=== PATIENT | female | born 1990 | race Caucasian/White ===

== ENCOUNTER 2017-03-19 01:32 | Emergency (ER) | payer MEDICAID ==
[~2017-03-19] VITALS: Ht 165.1 cm; Wt 53.5 kg
[2017-03-19] MEDS ORDERED: IV NORMAL SALINE 1000 ML BAG IV ONE ×2 (02:00→02:15)
--- NOTE | 2017-03-19 02:00 | NUR ---
Pt ambulated to room with steady gait and changed into gown. Pt c/o severe sharp mid epigastric pain non radiating with nausea for 1 day. Pt seen by Dr. Elliott, awaiting further orders.
[2017-03-19] MEDS ORDERED: MORPHINE SULFATE 2 MG/1 ML DISP.SYRIN IV ONE (02:15)
[2017-03-19] MEDS ORDERED: ONDANSETRON 4 MG/2 ML VIAL IV ONE (02:15)
[2017-03-19 02:16] LABS: *BILIRUBIN,URIN NEGATIVE (NEGATIVE); *BLOOD, URINE NEGATIVE (NEGATIVE); *CLARITY,URINE CLEAR (CLEAR); *COLOR,URINE STRAW (YELLOW); *KETONES,URINE NEGATIVE (NEGATIVE); *PROTEIN,URINE NEGATIVE (NEGATIVE); *UROBILINOGEN,URINE 0.2 E.U./dl (NORMAL); LEUKOCYTE ESTERASE ,URINE NEGATIVE (NEGATIVE); NITRITE, URINE NEGATIVE (NEGATIVE); UGLUCOSE NEGATIVE (NEGATIVE)
[2017-03-19 02:17] LABS: *URINE HCG, QUAL NEGATIVE (NEGATIVE)
[2017-03-19 02:28] LABS: BASOPHILS % (AUTO) 0.1 % (0.0-2.0); EOSINOPHILS # (AUTO) 0.1 K/uL (0.0-0.7); HEMATOCRIT 38.4 % (37-47); HEMOGLOBIN 13.2 G/DL (12.0-16.0); LYMPHOCYTES # (AUTO) 1.4 K/UL (0.8-4.8); LYMPHOCYTES % (AUTO) 14.3 % (20.5-51.5); MEAN CORPUSCULAR HEMOGLOBIN 31.7 UUG (27.0-31.0); MEAN CORPUSCULAR HGB CONC 35 g/dL (32.0-37.0); MEAN CORPUSCULAR VOLUME 91.9 FL (81.0-99.0); MONOCYTES # (AUTO) 0.5 K/UL (0.1-1.30); MONOCYTES % (AUTO) 4.8 % (0.0-11.0); NEUTROPHILS # (AUTO) 7.6 K/UL (1.8-8.9); NEUTROPHILS % (AUTO) 79.8 % (38.5-71.5); PLATELET COUNT (AUTO) 187 K/UL (150-450); RED BLOOD CELL COUNT(AUTO) 4.18 MIL/UL (4.2-5.4); WHITE BLOOD COUNT (AUTO) 9.6 K/UL (4.0-11.2)
--- NOTE | 2017-03-19 02:35 | NUR ---
IV established, labs drawn and sent. Pt medicated for discomfort and nausea, will monitor for effects of medication. Pt resting in position of comfort for self. Fluid bolus infusing freely to gravity. Awaiting U/S
[2017-03-19 02:36] LABS: BACTERIA,URINE NONE SEEN /HPF (NONE SEEN); RBC,URINE NONE SEEN /HPF (0-3); SQUAMOUS EPITHELIAL CELL,UR FEW /HPF (NONE SEEN); WBC,URINE NONE SEEN /HPF (0-3)
[2017-03-19 02:39] LABS: CREATININE 0.8 mg/dL (0.6-1.3); POTASSIUM 3.6 mmol/L (3.5-5.1)
[2017-03-19] MEDS ORDERED: ONDANSETRON 4 MG/2 ML VIAL ONE (02:39)
[2017-03-19] MEDS ORDERED: MORPHINE SULFATE 4 MG/1 ML DISP.SYRIN ONE (02:39)
[2017-03-19 02:44] LABS: BILIRUBIN,DIRECT 0.1 mg/dL (0.0-0.2); BILIRUBIN,TOTAL 0.2 mg/dL (0.2-1.0); TOTAL PROTEIN, SERUM 6.8 g/dL (6.4-8.2)
[2017-03-19] MEDS ORDERED: PANTOPRAZOLE SODIUM 40 MG VIAL IV ONE (02:45)
[2017-03-19] MEDS ORDERED: PANTOPRAZOLE SODIUM 40 MG VIAL ONE (03:06)
--- NOTE | 2017-03-19 03:08 | NUR ---
Pt sts pain improved with medications. Pt ambulated to br with steady gait. Pt resting in position of comfort for self. No complaints at this time. First fluid bolus completed, second fluid bolus started and is infusing freely to gravity.
--- NOTE | 2017-03-19 03:55 | NUR ---
Second fluid bolus completed. Pt ambulated to and from br with steady gait. Was resting in position of comfort for self. U/S arrived at bedside.
--- NOTE | 2017-03-19 04:30 | NUR ---
Dr. Elliott into re-evaluate pt. Pt cont to have pain but declines pain medication at this time. Pt to have CT
--- NOTE | 2017-03-19 04:43 | NUR ---
Pt to CT via edgard
--- NOTE | 2017-03-19 04:58 | NUR ---
pt returned from CT via gurney. Resting in position of comfort for self. No complaints at this time
--- NOTE | 2017-03-19 05:56 | NUR ---
Pt stable for discharge per MD. IV dc'd, catheter intact. Drsg applied, no problems noted to site. Pt and family member given ACI. Both verbalized understanding of dc instructions. Provided pt with information on free/low cost medical clinics in [place]. 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
[2017-03-19 05:58] VITALS: BP 96/65
== END 2017-03-19 05:58 | disposition home or self-care (01) ==
LOC: ER 01:34
DX: K52.9 Noninfective gastroenteritis and colitis, unspecified (principal); R91.8 Other nonspecific abnormal finding of lung field; F17.200 Nicotine dependence, unspecified, uncomplicated
CPT/HCPCS: 36415; 83690; 84703; 85025; A4663; C9113; J2270; J2405; J7030